=== PATIENT | female | born 1955 | race Native Hawaiian/Other Pacific Islander ===

== ENCOUNTER 2018-10-13 12:32 | Outpatient (CLI) | payer OTHER | END 2018-10-13 22:26 | disposition home or self-care (01) | LOC: MAMMO 12:32 | DX: Z12.31 Encounter for screening mammogram for malignant neoplasm of breast (principal) ==

== ENCOUNTER 2019-05-05 09:37 | Outpatient (CLI) | payer OTHER ==
[2019-05-05 10:20] LABS: POTASSIUM 4.1 mmol/L (3.6-5.2)
== END 2019-05-05 23:43 | disposition home or self-care (01) ==
LOC: LABW 09:37
PROVIDERS: Nurse Practitioner Family
DX: E11.65 Type 2 diabetes mellitus with hyperglycemia (principal); R03.0 Elevated blood-pressure reading, without diagnosis of hypertension; E05.00 Thyrotoxicosis with diffuse goiter without thyrotoxic crisis or storm; E78.49 Other hyperlipidemia
CPT/HCPCS: 36415; 80053; 80061; 82043; 82306; 82570; 84439; 84443; 84480

== ENCOUNTER 2020-06-21 09:52 | Outpatient (CLI) | payer OTHER | END 2020-06-21 19:49 | disposition home or self-care (01) | LOC: MAMMO 09:52 | DX: Z12.31 Encounter for screening mammogram for malignant neoplasm of breast (principal) ==

== ENCOUNTER 2021-10-10 08:04 | Outpatient (CLI) | payer OTHER | END 2021-10-10 20:29 | disposition home or self-care (01) | LOC: MAMMO 08:04 | PROVIDERS: ATTEND Nurse Practitioner Family | DX: Z12.31 Encounter for screening mammogram for malignant neoplasm of breast (principal) ==